=== PATIENT | female | born 1985 | race Caucasian/White ===

== ENCOUNTER 2025-04-03 13:55 | Outpatient (CLI) | payer OTHER, MEDICAID | END 2025-04-03 17:00 | disposition home or self-care (01) | LOC: Rad HDHVI 13:55 | PROVIDERS: ATTEND Internal Medicine Cardiovascular Disease | DX: R00.2 Palpitations (principal) | CPT/HCPCS: 93306 ==

== ENCOUNTER 2025-04-10 10:19 | Outpatient (CLI) | payer OTHER, MEDICAID ==
[~2025-04-10] VITALS: Ht 154.9 cm; Wt 108.9 kg
[2025-04-10] MEDS ORDERED: ADENOSINE 90 MG/30 ML INJ IV ONE (10:42)
[2025-04-10] MEDS ORDERED: ADENOSINE 91 MG in GIVE UN-DILUTED 0 ML IV ONE (14:15)
== END 2025-04-10 17:00 | disposition home or self-care (01) ==
LOC: Rad HDHVI 10:19
PROVIDERS: ATTEND Internal Medicine Cardiovascular Disease
DX: Z13.6 Encounter for screening for cardiovascular disorders (principal); R00.0 Tachycardia, unspecified; R07.89 Other chest pain; R06.02 Shortness of breath; R00.2 Palpitations
CPT/HCPCS: 78452; 93017; A9500; J0153